=== PATIENT | female | born 1950 | race Caucasian/White ===

== ENCOUNTER 2016-08-08 09:25 | Inpatient (IN) | payer MEDICARE, MEDICAID ==
[~2016-08-08] VITALS: Ht 161.3 cm; Wt 60.3 kg
[2016-08-26] MEDS ORDERED: OMEP40CA2 PO (15:16)
[2016-08-26] MEDS ORDERED: ALBUAER3 INH (15:16)
[2016-08-26] MEDS ORDERED: [UNRECOGNIZED DRUG - OTHER] LEFT EYE (15:16)
[2016-08-26] MEDS ORDERED: ALBU0.08 NEB (15:16)
[2016-08-26] MEDS ORDERED: RISE1TAB PO (15:16)
[2016-08-26] MEDS ORDERED: FLUT1INH INH (15:16)
[2016-08-26] MEDS ORDERED: MULTTAB25 PO (15:16)
[2016-08-26] MEDS ORDERED: CETI10 PO (15:16)
[2016-08-26] MEDS ORDERED: NAPR500T PO (15:16)
[2016-08-26] MEDS ORDERED: CALC600T10 PO (15:16)
[2016-08-26] MEDS ORDERED: MECL-62 PO (15:16)
[2016-08-26] MEDS ORDERED: BUSP15TA PO (15:16)
[2016-08-26] MEDS ORDERED: VITA20003 PO (15:16)
[2016-08-26] MEDS ORDERED: SPIRCAP INH (15:16)
[2016-08-26] MEDS ORDERED: [UNRECOGNIZED DRUG - CODE] TOP (15:16)
[2016-08-28] MEDS ORDERED: INSULIN HUMAN REGULAR 1,000 UNITS/10 ML VIAL SQ PRN (07:15)
[2016-08-28] MEDS ORDERED: ALVIMOPAN 12 MG CAPSULE - On Call PO SCH (07:15)
[2016-08-28] MEDS ORDERED: ACETAMINOPHEN 1000 MG/100 ML VIAL IV SCH (07:15)
[2016-08-28] MEDS ORDERED: ceFAZolin 1,000 MG/NS 100 ML IV SCH ×2 (07:15)
[2016-08-28] MEDS ORDERED: METRONIDAZOLE 500 MG/100 ML ISONTONIC SOLN IV SCH (07:15)
[2016-08-28] MEDS ORDERED: METOPROLOL TARTRATE 25 MG TAB PO PRN (07:15)
[2016-08-28] MEDS ORDERED: SODIUM CHLORID 0.9% 500 ML IV SCH (07:15)
[2016-08-28] MEDS ORDERED: LACTATED RINGER'S 1000 ML IV SCH (07:15)
[2016-08-28] MEDS ORDERED: BUPIVACAINE LIPOSOME PF 1.3% 20 ML VIAL ONE (07:25)
[2016-08-28] MEDS ORDERED: KETO0.5S2 LEFT EYE (07:46)
[2016-08-28] MEDS ORDERED: PRED1SUS LEFT EYE (07:46)
[2016-08-28 07:48] VITALS: BP 123/66; PULSE 88; RESP 18; TEMP 97.8; O2SAT 95
[2016-08-28 07:52] LABS: AUTOMATED NEUTROPHIL # 4.2 TH/MM3 (1.8-7.7); BASOPHIL % 0.6 % (0.0-2.0); EOSINOPHIL # 0.1 TH/MM3 (0-0.4); EOSINOPHIL % 1.6 % (0.0-4.0); HEMATOCRIT 38.8 % (35.0-46.0); HEMO FLAGS DIFF FINAL; LYMPH % 18.7 % (9.0-44.0); LYMPHOCYTE # 1.1 TH/MM3 (1.0-4.8); MEAN CELL VOLUME 86.2 FL (80.0-100.0); MEAN CORPUSCULAR HEMOGLOBIN 29.4 PG (27.0-34.0); MEAN CORPUSCULAR HGB CONC 34.2 % (32.0-36.0); MONO % 7.9 % (0.0-8.0); NEUT % 71.2 % (16.0-70.0); PLATELET COUNT 198 TH/MM3 (150-450); RED CELL DISTRIBUTION WIDTH 13.8 % (11.6-17.2); WHITE BLOOD COUNT 5.9 TH/MM3 (4.0-11.0)
[2016-08-28 08:18] LABS: BICARBONATE 27.1 MEQ/L (21.0-32.0); POTASSIUM 4.1 MEQ/L (3.5-5.1)
[2016-08-28] MEDS ORDERED: MIDAZOLAM HCL 2 MG/2 ML VIAL ONE (08:32)
[2016-08-28] MEDS ORDERED: FAMOTIDINE 20 MG/2 ML VIAL ONE (08:33)
[2016-08-28] MEDS ORDERED: BUPIVACAINE/EPINEPHRINE 0.25% 50 ML VIAL INFIL ONE (10:34)
[2016-08-28] MEDS ORDERED: NEOSTIGMINE 3 MG/3 ML SYR IV ONE (12:00)
[2016-08-28] MEDS ORDERED: PHENYLEPH/NS 1000 MCG/10 ML SYR IV ONE (12:00)
[2016-08-28] MEDS ORDERED: ONDANSETRON HCL 4 MG/2 ML VIAL IV PUSH ONE (12:00)
[2016-08-28] MEDS ORDERED: LACTATED RINGER'S 1000 ML INJ 1,000 ML IV ONE (12:00)
[2016-08-28] MEDS ORDERED: PROPOFOL 200 MG/20 ML AMP IV ONE (12:00)
--- NOTE | 2016-08-28 12:37 | HHI.PR ---
cc: Petros Mason MD Immediate Post Op Note Procedure Date: Aug 28, 2016 Pre Op Diagnosis: Villous adenoma of the cecum Incarcerated umbilical hernia Post Op Diagnosis: Same Surgeon: Petros Mason Hydrostatic Tester(s): TAIWO Romo Procedure: Laparoscopic assisted ileocecal resection Reduction and primary repair umbilical hernia Complications: None Specimen(s) removed: Distal ileum and cecum to pathology Estimated blood loss: 50 ml Anesthesia: General Drains: None IVF (1500 ml) Patient to: PACU Patient Condition: Good Date/Time of Procedure: SEE SURGICAL CARE RECORD Petros Mason MD Aug 28, 2016 12:37
[2016-08-28] MEDS ORDERED: Post-op Orders (for Pharmacy) MISC XX ONE (12:45)
[2016-08-28] MEDS ORDERED: KETOROLAC TROMETHAMINE 30 MG/ML (IVP) VIAL IVP PRN (12:45)
[2016-08-28] MEDS ORDERED: NALOXONE HCL 0.4 MG/ML AMP IV PRN (12:45)
[2016-08-28] MEDS ORDERED: MORPHINE SULFATE 4 MG/ML INJ IV PUSH PRN (12:45)
[2016-08-28] MEDS ORDERED: ONDANSETRON HCL 4 MG/2 ML VIAL IV PRN (12:45)
[2016-08-28] MEDS ORDERED: SODIUM CHLORIDE 0.9% FLUSH 5 ML FLUSH IVF PRN (12:45)
[2016-08-28] MEDS ORDERED: D5-1/2 NS + KCL 20 MEQ INJ 1,000 ML ONE (12:49)
[2016-08-28] MEDS ORDERED: *morphine SULFATE 8 MG/ML PERIprocedure ONLY ONE ×2 (12:54→13:29)
[2016-08-28] MEDS: D5-NS + KCL 20 MEQ INJ 1,000 ML IV SCH ×2 (12:55→23:41)
[2016-08-28] MEDS ORDERED: DO NOT ADM ANY ANTICOAGULANT DRUGS XX PRN (13:15)
[2016-08-28] MEDS ORDERED: *RESP: ALBUTEROL 2.5 MG/3 ML NEB (PRN) PERIprocedural Use ONLY NEB ONE (13:40)
[2016-08-28] MEDS ORDERED: fentaNYL CITRATE 250 MCG/5 ML AMP ONE (13:41)
[2016-08-28] MEDS ORDERED: PCA - TOTAL MG MORPHINE DELIVERED PER SHIFT SCH (14:00)
--- NOTE | 2016-08-28 19:43 | EKG ---
Date Performed: 08/28/2016 Time Performed: 07:24:32 PTAGE: 66 years EKG: Sinus rhythm INFERIOR MYOCARDIAL INFARCTION , PROBABLY OLD ABNORMAL ECG PREVIOUS TRACING : 12/09/2013 11.27 Compared to prior tracing no significant change DOCTOR: Ewa Dockery Interpretating Date/Time 08/28/2016 19:42:08
[2016-08-28 20:00] VITALS: BP 115/63; PULSE 92; RESP 18; TEMP 97.7; O2SAT 96
[2016-08-28] MEDS: SODIUM CHLORIDE 0.9% FLUSH 5 ML FLUSH IVF SCH (21:00)
[2016-08-28] MEDS ORDERED: MECLIZINE HCL 25 MG TAB PO PRN (21:00)
[2016-08-28] MEDS ORDERED: RISEDRONATE 35 MG PO SCH (21:00)
--- NOTE | 2016-08-28 21:24 | RADRPT ---
EXAM DATE/TIME: 08/28/2016 21:04 [place] COMPARISON: No previous studies available for comparison. INDICATIONS : Short of breath. MEDICAL HISTORY : Unobtainable. SURGICAL HISTORY : Unobtainable. ENCOUNTER: Initial ACUITY: 1 day PAIN SCORE: 0/10 LOCATION: Bilateral chest FINDINGS: A single view of the chest demonstrates the lungs to be symmetrically aerated without evidence of mas s, infiltrate or effusion. The cardiomediastinal contours are unremarkable. Osseous structures are intact. CONCLUSION: No acute disease. Yobani Childers MD on August 28, 2016 at 21:23 Board Certified Radiologist. This report was verified electronically.
[2016-08-28] MEDS: RESP: ALBUTEROL 2.5 MG/3 ML NEB (PRN) NEB (22:30)
[2016-08-28] MEDS: busPIRone HCL 5 MG TAB PO SCH (23:39)
[2016-08-28] MEDS: ACETAMINOPHEN/HYDROcodone 325 MG/5 MG TAB PO PRN (23:46)
[2016-08-28] MEDS: KETOROLAC TROMETHAMINE 0.5% OPHT SOLN 5 ML BTL LEFT EYE SCH (23:50)
[2016-08-28] MEDS: prednisoLONE ACETATE 1% OPHT SUSP 5 ML BTL LEFT EYE SCH (23:51)
[2016-08-29] VITALS (8 sets, daily range): BP systolic 107–134; BP diastolic 55–60; PULSE 88–104; RESP 17–20; TEMP 97.7–99.3; O2SAT 93–98
[2016-08-29 05:39] LABS: AUTOMATED NEUTROPHIL # 14.3 TH/MM3 (1.8-7.7); BASOPHIL % 0.1 % (0.0-2.0); HEMATOCRIT 35.1 % (35.0-46.0); HEMO FLAGS DIFF FINAL; LYMPH % 5.5 % (9.0-44.0); LYMPHOCYTE # 0.9 TH/MM3 (1.0-4.8); MEAN CELL VOLUME 87.1 FL (80.0-100.0); MEAN CORPUSCULAR HEMOGLOBIN 29.7 PG (27.0-34.0); MEAN CORPUSCULAR HGB CONC 34.1 % (32.0-36.0); MONO % 8.5 % (0.0-8.0); NEUT % 85.9 % (16.0-70.0); PLATELET COUNT 190 TH/MM3 (150-450); RED BLOOD COUNT 4.03 MIL/MM3 (4.00-5.30); RED CELL DISTRIBUTION WIDTH 14.1 % (11.6-17.2); WHITE BLOOD COUNT 16.6 TH/MM3 (4.0-11.0)
[2016-08-29 05:53] LABS: BICARBONATE 27.8 MEQ/L (21.0-32.0)
[2016-08-29] MEDS: D5-NS + KCL 20 MEQ INJ 1,000 ML IV SCH ×3 (06:35→20:37)
[2016-08-29] MEDS: ACETAMINOPHEN/HYDROcodone 325 MG/5 MG TAB PO PRN ×4 (06:35→23:03)
[2016-08-29] MEDS: ALVIMOPAN 12 MG CAPSULE - Post-op dosing PO SCH ×2 (08:03→22:53)
[2016-08-29] MEDS: MULTIVITAMIN HEMATINIC THERAPEUTIC TAB PO SCH (08:03)
[2016-08-29] MEDS: CALCIUM/VITAMIN D 250 MG/125 U TAB PO SCH (08:03)
[2016-08-29] MEDS: CHOLECALCIFEROL (VIT D3) 1000 UNIT TAB PO SCH (08:03)
[2016-08-29] MEDS: CETIRIZINE HCL 10 MG TAB PO SCH (08:03)
[2016-08-29] MEDS: busPIRone HCL 5 MG TAB PO SCH ×2 (08:03→22:52)
[2016-08-29] MEDS: TIOTROPIUM BROMIDE 18 MCG INH INH SCH (08:04)
[2016-08-29] MEDS: KETOROLAC TROMETHAMINE 0.5% OPHT SOLN 5 ML BTL LEFT EYE SCH ×4 (08:04→22:54)
[2016-08-29] MEDS: FLUTICASONE 100 MCG/VILANTEROL 25 MCG INHALER INH SCH (08:04)
[2016-08-29] MEDS: prednisoLONE ACETATE 1% OPHT SUSP 5 ML BTL LEFT EYE SCH ×4 (08:04→22:54)
[2016-08-29] MEDS: SODIUM CHLORIDE 0.9% FLUSH 5 ML FLUSH IVF SCH ×2 (08:05→21:00)
--- NOTE | 2016-08-29 11:07 | HHI.PR ---
Subjective Subjective Notes Resting in bed Pain controlled Has been OOB this morning with [place] PEREZ Objective Vitals/I&O Vital Signs Date Time Temp Pulse Resp B/P Pulse Ox O2 Delivery O2 Flow Rate FiO2 08/29/16 08:00 97.8 88 17 115/57 96 08/28/16 19:30 Nasal Cannula 2 Labs Laboratory Tests Test 08/29/16 05:02 White Blood Count 16.6 Red Blood Count 4.03 Hemoglobin 12.0 Hematocrit 35.1 Mean Corpuscular Volume 87.1 Mean Corpuscular Hemoglobin 29.7 Mean Corpuscular Hemoglobin 34.1 Concent Red Cell Distribution Width 14.1 Platelet Count 190 Mean Platelet Volume 9.3 Neutrophils (%) (Auto) 85.9 Lymphocytes (%) (Auto) 5.5 Monocytes (%) (Auto) 8.5 Eosinophils (%) (Auto) 0.0 Basophils (%) (Auto) 0.1 Neutrophils # (Auto) 14.3 Lymphocytes # (Auto) 0.9 Monocytes # (Auto) 1.4 Eosinophils # (Auto) 0.0 Basophils # (Auto) 0.0 CBC Comment DIFF FINAL Differential Comment Sodium Level 140 Potassium Level 4.0 Chloride Level 105 Carbon Dioxide Level 27.8 Anion Gap 7 Blood Urea Nitrogen 10 Creatinine 0.70 Estimat Glomerular Filtration 84 Rate Random Glucose 129 Calcium Level 8.2 Cardiovascular: Regular Lungs: Clear Abdomen: Other (RLQ incision c/d/i; lap sites c/d/i; UH dressing with minimal blody drainage ) Extremities: No edema A/P Assessment and Plan 66 year old female POD1 Laparoscopic assisted ileocecal resection and reduction and primary repair umbilical hernia -Continue fulls -OOB and mobilized; up to chair TID and walk in hallway -Pain control -Encouraged IS use -Off oxygen; continue Albuterol Attending Note - Dr. Mason Abdominal wounds clean and dry; minimal drainage on umbilical dressing. No flatus or BM yet. As above; await path report. The exam, history, and the medical decision-making described in the above note were completed with the assistance of the mid-level provider. I reviewed and agree with the findings presented. I attest that I had a [id number] encounter with the patient on the same day, and personally performed and documented my assessment and findings in the medical record. Gerda Dubon Aug 29, 2016 11:07 Petros Mason MD Aug 29, 2016 14:25
[2016-08-30] VITALS: BP 122/63; PULSE 86; RESP 20; TEMP 97.5; O2SAT 97
[2016-08-30 04:32] LABS: AUTOMATED NEUTROPHIL # 7.8 TH/MM3 (1.8-7.7); BASOPHIL # 0.1 TH/MM3 (0-0.2); BASOPHIL % 0.6 % (0.0-2.0); EOSINOPHIL # 0.1 TH/MM3 (0-0.4); HEMATOCRIT 35.5 % (35.0-46.0); HEMO FLAGS DIFF FINAL; LYMPH % 12.8 % (9.0-44.0); LYMPHOCYTE # 1.3 TH/MM3 (1.0-4.8); MEAN CELL VOLUME 87.5 FL (80.0-100.0); MEAN CORPUSCULAR HGB CONC 33.2 % (32.0-36.0); MONO % 10.6 % (0.0-8.0); PLATELET COUNT 174 TH/MM3 (150-450); RED BLOOD COUNT 4.06 MIL/MM3 (4.00-5.30); RED CELL DISTRIBUTION WIDTH 14.1 % (11.6-17.2); WHITE BLOOD COUNT 10.3 TH/MM3 (4.0-11.0)
[2016-08-30] MEDS: ACETAMINOPHEN/HYDROcodone 325 MG/5 MG TAB PO PRN ×5 (04:40→21:43)
[2016-08-30] MEDS: D5-NS + KCL 20 MEQ INJ 1,000 ML IV SCH ×3 (06:49→16:24)
[2016-08-30 08:17] VITALS: BP 141/65; PULSE 90; RESP 18; TEMP 97.2; O2SAT 94
[2016-08-30] MEDS: prednisoLONE ACETATE 1% OPHT SUSP 5 ML BTL LEFT EYE SCH ×4 (08:18→19:56)
[2016-08-30] MEDS: ALBUTEROL SULFATE 90 MCG/ACT HFA 8 GM INHALER INH PRN (08:19)
[2016-08-30] MEDS: KETOROLAC TROMETHAMINE 0.5% OPHT SOLN 5 ML BTL LEFT EYE SCH ×4 (08:19→19:56)
[2016-08-30] MEDS: TIOTROPIUM BROMIDE 18 MCG INH INH SCH (08:20)
[2016-08-30] MEDS: FLUTICASONE 100 MCG/VILANTEROL 25 MCG INHALER INH SCH (08:21)
[2016-08-30] MEDS: CETIRIZINE HCL 10 MG TAB PO SCH ×2 (08:22→08:25)
[2016-08-30] MEDS: busPIRone HCL 5 MG TAB PO SCH ×2 (08:22→19:56)
[2016-08-30] MEDS: CHOLECALCIFEROL (VIT D3) 1000 UNIT TAB PO SCH (08:22)
[2016-08-30] MEDS: CALCIUM/VITAMIN D 250 MG/125 U TAB PO SCH (08:22)
[2016-08-30] MEDS: ALVIMOPAN 12 MG CAPSULE - Post-op dosing PO SCH ×2 (08:22→19:56)
[2016-08-30] MEDS: MULTIVITAMIN HEMATINIC THERAPEUTIC TAB PO SCH (08:22)
[2016-08-30] MEDS: SODIUM CHLORIDE 0.9% FLUSH 5 ML FLUSH IVF SCH ×2 (08:25→19:55)
[2016-08-30 08:29] VITALS: O2SAT 94
[2016-08-30 12:00] VITALS: BP 124/57; PULSE 82; RESP 18; TEMP 97.9; O2SAT 96
[2016-08-30 16:00] VITALS: BP 142/71; PULSE 95; RESP 20; TEMP 97.1; O2SAT 95
--- NOTE | 2016-08-30 16:08 | HHI.PR ---
Subjective Subjective Notes Has been OOB and make bed up today Passing gas Objective Vitals/I&O Vital Signs Date Time Temp Pulse Resp B/P Pulse Ox O2 Delivery O2 Flow Rate FiO2 08/30/16 13:43 18 08/30/16 12:00 97.9 82 124/57 96 08/30/16 08:29 21 08/29/16 21:08 Nasal Cannula 2.00 Labs Laboratory Tests Test 08/30/16 03:59 White Blood Count 10.3 Red Blood Count 4.06 Hemoglobin 11.8 Hematocrit 35.5 Mean Corpuscular Volume 87.5 Mean Corpuscular Hemoglobin 29.0 Mean Corpuscular Hemoglobin 33.2 Concent Red Cell Distribution Width 14.1 Platelet Count 174 Mean Platelet Volume 9.3 Neutrophils (%) (Auto) 75.0 Lymphocytes (%) (Auto) 12.8 Monocytes (%) (Auto) 10.6 Eosinophils (%) (Auto) 1.0 Basophils (%) (Auto) 0.6 Neutrophils # (Auto) 7.8 Lymphocytes # (Auto) 1.3 Monocytes # (Auto) 1.1 Eosinophils # (Auto) 0.1 Basophils # (Auto) 0.1 CBC Comment DIFF FINAL Differential Comment Cardiovascular: Regular Lungs: Clear Abdomen: Other (incision TONY; lap sites c/d/i; UHR dressing with minimal bloody drainage), Post-op tenderness Extremities: No edema A/P Assessment and Plan 66 year old female POD2 Laparoscopic assisted ileocecal resection and reduction and primary repair umbilical hernia -Continue fulls until BM -OOB and mobilized; up to chair TID and walk in hallway -Decrease fluids to 75 cc/hr -Pain control -Encouraged IS use -Off oxygen; continue Albuterol Attending Note - Dr. Mason Abdomen soft; incisions clean and dry; tegaderm intact over umbilicus. The exam, history, and the medical decision-making described in the above note were completed with the assistance of the mid-level provider. I reviewed and agree with the findings presented. I attest that I had a [id number] encounter with the patient on the same day, and personally performed and documented my assessment and findings in the medical record. Gerda Dubon Aug 30, 2016 16:08 Petros Mason MD Sep 02, 2016 21:44
[2016-08-30] MEDS ORDERED: NORC5TAB PO (19:43)
[2016-08-30 20:00] VITALS: BP 138/71; PULSE 90; RESP 20; TEMP 98.3; O2SAT 94
[2016-08-31] VITALS: BP 124/73; PULSE 86; RESP 20; TEMP 98.5; O2SAT 94
[2016-08-31] MEDS: RESP: ALBUTEROL 2.5 MG/3 ML NEB (PRN) NEB (05:16)
[2016-08-31] MEDS: ACETAMINOPHEN/HYDROcodone 325 MG/5 MG TAB PO PRN ×3 (05:39→22:16)
[2016-08-31 08:00] VITALS: BP 142/64; PULSE 83; RESP 20; TEMP 97.5; O2SAT 95
[2016-08-31] MEDS: MULTIVITAMIN HEMATINIC THERAPEUTIC TAB PO SCH (09:00)
[2016-08-31] MEDS: busPIRone HCL 5 MG TAB PO SCH ×2 (09:12→19:31)
[2016-08-31] MEDS: ALVIMOPAN 12 MG CAPSULE - Post-op dosing PO SCH ×2 (09:12→19:31)
[2016-08-31] MEDS: CALCIUM/VITAMIN D 250 MG/125 U TAB PO SCH (09:13)
[2016-08-31] MEDS: CETIRIZINE HCL 10 MG TAB PO SCH (09:13)
[2016-08-31] MEDS: CHOLECALCIFEROL (VIT D3) 1000 UNIT TAB PO SCH (09:13)
[2016-08-31] MEDS: FLUTICASONE 100 MCG/VILANTEROL 25 MCG INHALER INH SCH (09:15)
[2016-08-31] MEDS: SODIUM CHLORIDE 0.9% FLUSH 5 ML FLUSH IVF SCH ×2 (09:15→19:31)
[2016-08-31] MEDS: ALBUTEROL SULFATE 90 MCG/ACT HFA 8 GM INHALER INH PRN (09:16)
[2016-08-31] MEDS: TIOTROPIUM BROMIDE 18 MCG INH INH SCH (09:16)
[2016-08-31] MEDS: KETOROLAC TROMETHAMINE 0.5% OPHT SOLN 5 ML BTL LEFT EYE SCH ×4 (09:16→19:31)
[2016-08-31] MEDS: prednisoLONE ACETATE 1% OPHT SUSP 5 ML BTL LEFT EYE SCH ×4 (09:16→19:31)
--- NOTE | 2016-08-31 10:37 | HHI.PR ---
Subjective Subjective Notes doing well, up washing her hair. Passing flatus, hungry. Objective Vitals/I&O Vital Signs Date Time Temp Pulse Resp B/P Pulse Ox O2 Delivery O2 Flow Rate FiO2 08/31/16 08:00 97.5 83 20 142/64 95 08/30/16 08:29 21 08/29/16 21:08 Nasal Cannula 2.00 Abdomen: Non-distended, Other, Post-op tenderness (soft. Incisions clean and dry. no erythema, no drainage. Umbilical dressing intact, dry.) Extremities: No edema, Perfused A/P Assessment and Plan POD 3 s/p ileocecal resection, repair UH. Doing well. Pt wants regular food, will order. Chacorta Boudreaux MD Aug 31, 2016 10:37
[2016-08-31 12:34] VITALS: BP 128/75; PULSE 104; RESP 20; TEMP 97.7; O2SAT 95
[2016-08-31 16:22] VITALS: BP 149/90; PULSE 91; RESP 20; TEMP 98.7; O2SAT 94
[2016-08-31 20:00] VITALS: BP 125/67; PULSE 118; RESP 18; TEMP 98.6; O2SAT 93
[2016-09-01] VITALS: BP 102/50; PULSE 88; RESP 18; TEMP 97.7; O2SAT 94
[2016-09-01] MEDS: ACETAMINOPHEN/HYDROcodone 325 MG/5 MG TAB PO PRN ×3 (05:34→18:13)
[2016-09-01 08:00] VITALS: BP 129/58; PULSE 92; RESP 16; TEMP 96.4; O2SAT 94
[2016-09-01 08:20] VITALS: O2SAT 93
[2016-09-01] MEDS: MULTIVITAMIN HEMATINIC THERAPEUTIC TAB PO SCH (08:48)
[2016-09-01] MEDS: CETIRIZINE HCL 10 MG TAB PO SCH (08:49)
[2016-09-01] MEDS: CHOLECALCIFEROL (VIT D3) 1000 UNIT TAB PO SCH (08:49)
[2016-09-01] MEDS: ALVIMOPAN 12 MG CAPSULE - Post-op dosing PO SCH ×2 (08:49→20:42)
[2016-09-01] MEDS: CALCIUM/VITAMIN D 250 MG/125 U TAB PO SCH (08:49)
[2016-09-01] MEDS: busPIRone HCL 5 MG TAB PO SCH ×2 (08:49→20:42)
[2016-09-01] MEDS: ALBUTEROL SULFATE 90 MCG/ACT HFA 8 GM INHALER INH PRN (08:52)
[2016-09-01] MEDS: FLUTICASONE 100 MCG/VILANTEROL 25 MCG INHALER INH SCH (08:52)
[2016-09-01] MEDS: KETOROLAC TROMETHAMINE 0.5% OPHT SOLN 5 ML BTL LEFT EYE SCH ×4 (08:52→20:43)
[2016-09-01] MEDS: TIOTROPIUM BROMIDE 18 MCG INH INH SCH (08:52)
[2016-09-01] MEDS: prednisoLONE ACETATE 1% OPHT SUSP 5 ML BTL LEFT EYE SCH ×4 (08:52→20:42)
[2016-09-01] MEDS: SODIUM CHLORIDE 0.9% FLUSH 5 ML FLUSH IVF SCH ×2 (08:52→20:43)
[2016-09-01 12:00] VITALS: BP 129/60; PULSE 101; RESP 16; TEMP 96.9; O2SAT 93
--- NOTE | 2016-09-01 12:38 | HHI.PR ---
Subjective Subjective Notes DAILY PROGRESS NOTE FOR SURGICAL ATTENDING, DR. DANILO DAVIES Objective Vitals/I&O Vital Signs Date Time Temp Pulse Resp B/P Pulse Ox O2 Delivery O2 Flow Rate FiO2 09/01/16 08:20 93 21 09/01/16 08:00 96.4 92 16 129/58 08/29/16 21:08 Nasal Cannula 2.00 Labs Allergies Coded Allergies Type Severity Reaction Last Updated Verified Latex Allergy Severe Rash 08/28/16 Yes Adhesives Allergy Intermediate Itching 08/28/16 Yes Codeine Adverse Reaction Mild NAUSEA 08/28/16 Yes 08/30//////// 06:00 18:00 06:00 18:00 06:00 18:00 Intake Total 2391 ml 1727 ml 1440 ml 740 ml 960 ml Output Total 1200 ml Balance 2391 ml 527 ml 1440 ml 740 ml 960 ml Intake Oral 960 ml 950 ml 1440 ml 740 ml 960 ml IV Total 1431 ml 777 ml 0 ml 0 ml Output Urine Total 1200 ml # Voids 7 8 7 # Bowel Movements 0 1 1 Laboratory Tests Test 08/30/16 03:59 White Blood Count 10.3 TH/MM3 Red Blood Count 4.06 MIL/MM3 Hemoglobin 11.8 GM/DL Hematocrit 35.5 % Mean Corpuscular Volume 87.5 FL Mean Corpuscular Hemoglobin 29.0 PG Mean Corpuscular Hemoglobin 33.2 % Concent Red Cell Distribution Width 14.1 % Platelet Count 174 TH/MM3 Mean Platelet Volume 9.3 FL Neutrophils (%) (Auto) 75.0 % Lymphocytes (%) (Auto) 12.8 % Monocytes (%) (Auto) 10.6 % Eosinophils (%) (Auto) 1.0 % Basophils (%) (Auto) 0.6 % Neutrophils # (Auto) 7.8 TH/MM3 Lymphocytes # (Auto) 1.3 TH/MM3 Monocytes # (Auto) 1.1 TH/MM3 Eosinophils # (Auto) 0.1 TH/MM3 Basophils # (Auto) 0.1 TH/MM3 CBC Comment DIFF FINAL Differential Comment Procedure Category Date Status Time Complete Blood Count LAB 08/30/16 Complete With Diff 06:00 Sling Cradle Arm ORTHO 08/28/16 Complete Diet Regular Basic DIET 08/31/16 Transmitted Lunch ^ IV SIVA 08/31/16 In Process 18:48 Vital Signs Date Time Temp Pulse Resp B/P Pulse Ox O2 Delivery O2 Flow Rate FiO2 09/01/16 08:20 93 21 09/01/16 08:00 96.4 92 16 129/58 94 09/01/16 00:00 97.7 88 18 102/50 94 08/31/16 20:00 98.6 118 18 125/67 93 08/31/16 16:22 98.7 91 20 149/90 94 08/31/16 12:34 97.7 104 20 128/75 95 08/31/16 09:15 21 08/31/16 08:00 97.5 83 20 142/64 95 08/31/16 00:00 98.5 86 20 124/73 94 08/30/16 20:00 98.3 90 20 138/71 94 08/30/16 17:37 18 08/30/16 16:00 97.1 95 20 142/71 95 08/30/16 13:43 18 08/30/16 12:00 97.9 82 18 124/57 96 08/30/16 08:29 94 21 08/30/16 08:17 97.2 90 18 141/65 94 08/30/16 00:00 97.5 86 20 122/63 97 08/29/16 21:08 98 Nasal Cannula 2.00 08/29/16 20:00 98.4 98 20 107/57 93 08/29/16 16:00 98.5 104 20 134/55 96 Radiology Last Impressions Chest X-Ray 08/28/16 0000 Signed Impressions: Service Date/Time: Sunday, August 28, 2016 21:04 - CONCLUSION: No acute disease. Yobani Childers MD Cardiovascular: Regular Abdomen: Post-op tenderness Extremities: SCD's on Narrative Exam Wound 2 right lower quadrant healing well Umbilical wound healing well Wound Wound : Wound Location: Abdomen Appearance: Clean & Dry Dressing: Dry A/P Assessment and Plan PO s/p ileocecal resection, repair UH. Doing well. Tolerating regular food Positive bowel movement Anticipate discharge Friday if continues to progress. Discharge Planning Possible Friday Attending Statement NOTE FOR SURGICAL ATTENDING, DR. DANILO DAVIES I attest that I had a [id number] encounter with the patient on the same day, and personally performed and documented my assessment and findings in the medical record. The following services were provided during this hospital visit: Chart data review, vital sign assessments/reviewing monitor data Review of consultations notes if present. Medication orders/review and/or management Ordering and/or reviewing lab tests Ordering and/or interpreting/reviewing x-rays and/or diagnostic studies Care of the patient and discussion of the patient with the care team Documentation time To help prompt me to consider important information that might be impacting today's encounter and assessment, information from prior notes written by myself or my colleagues may have been "brought forward/copy and pasted" into today's note. Danilo Davies MD Sep 01, 2016 12:38
[2016-09-01 16:00] VITALS: BP 119/66; PULSE 112; RESP 16; TEMP 97.8; O2SAT 93
[2016-09-01] MEDS: RESP: ALBUTEROL 2.5 MG/3 ML NEB (PRN) NEB (16:18)
--- NOTE | 2016-09-01 18:09 | MP ---
cc: PETROS MASON M.D., HARRY M.D. DATE OF SURGERY: 08/28/2016 OPERATIVE PROCEDURE PERFORMED: 1. Laparoscopic assisted the ileocecal resection. 2. Reduction and primary repair of incarcerated umbilical hernia. ANESTHESIA: General endotracheal SURGEON: Petros Mason MD. CLOTH GRADER SUPERVISOR: TAIWO Guadarrama ESTIMATED BLOOD LOSS: 50 mL. FLUIDS: 1500 mL crystalloid. COMPLICATIONS: None. DRAINS: None. SPECIMEN: Ileocecal resection to pathology. The STRAND GALVANIZER was required to be present to assist in all aspects of the procedure. She was needed for exposure, retraction, and assistance in all technical portions of the procedure. She was present for the entire procedure. DESCRIPTION OF THE PROCEDURE IN DETAIL: The patient was taken to the operating room and placed on the operating table in the supine position after undergoing tap block. She underwent general endotracheal anesthesia. The abdomen was sterilely prepped and draped. Time-out was taken confirming the correct patient, site and procedure to be performed. Skin and subcutaneous tissue was infiltrated with local anesthetic and an incision made through the umbilicus. The fatty tissue was reduced into the abdominal cavity after opening the defect slightly. A 12 mm balloon trocar was inserted and the balloon inflated. The abdomen was insufflated. A 5-mm 30-degree lens was then inserted. Two 5-mm trocars were then placed with the first above the umbilicus and slightly to the right of the midline and the second in the infraumbilical midline. Both entered the abdominal cavity under direct vision uneventfully. Both of these were then used to manipulate the colon. The hepatic flexure was taken down with the harmonic scalpel. The patient was noted to have very loose minimal fatty tissue and attachments. The appendix was then grasped and the cecum was mobilized with the harmonic scalpel as well. When this had been accomplished, the ileum was seen to be quite floppy and the patient was felt to be able to have easy resection in the right lower quadrant. At this point, insufflation was discontinued with the appendix grasped with a grasper. The laparoscope was removed. A transverse incision was made in the right lower quadrant. Dissection was carried through the anterior fascia with electrocautery. The muscle was split in fibers and left intact. The posterior fascia was opened sharply with scissors. The peritoneal cavity was entered uneventfully. The cecum was brought up into the wound and at this point a ROSA was used to divide the ileum as well as the ascending colon at the mid ascending colon location. The mesentery in-between was then divided with both the harmonic scalpel as well as between successive clamping and ligation with 2-0 silk sutures. The specimen was passed off the table. The ileum and cecum were then opened after toweling off the area and an ileocecal anastomosis was created with the ROSA 75 stapler. The toe of the staple line was reinforced and the staple line internally was examined and seen to be hemostatic. The ileocecal opening was then closed with a TX-60 type stapler. The staple line was examined and seen to be intact. The anastomosis was seen to be widely patent. The mesenteric defect was closed with [id number] 3-0 silk suture. When this was accomplished and hemostasis was assured, the new ileocolic anastomosis was placed back into the abdominal cavity. The fascia was closed in two layers with #1 PDS suture. The skin was closed with interrupted 3-0 Vicryl suture and 5-0 PDS in a running subcuticular fashion. The two 5 mm trocars were closed with interrupted buried 4-0 Vicryl suture. The umbilicus was closed with #1 Prolene in a vertical simple interrupted fashion. The skin was closed with 4-0 Vicryl in an interrupted buried fashion. A 4x4 and Tegaderm was applied over this and the air aspirated to help minimize seroma formation. The patient was taken back to the recovery room in stable condition after being extubated. Sponge, needle and instrument counts were reported be correct. MD GÉNESIS Gillespie/JUAN CARLOS /5:17 PM /5:57 PM SABA
[2016-09-01 20:00] VITALS: BP 134/58; PULSE 95; RESP 20; TEMP 98.5; O2SAT 93
[2016-09-02] VITALS: BP 122/64; PULSE 97; RESP 18; TEMP 97.8; O2SAT 95
[2016-09-02] MEDS: ACETAMINOPHEN/HYDROcodone 325 MG/5 MG TAB PO PRN ×3 (00:22→10:29)
[2016-09-02 08:00] VITALS: BP 122/63; PULSE 89; RESP 14; TEMP 96.4; O2SAT 93
[2016-09-02] MEDS: SODIUM CHLORIDE 0.9% FLUSH 5 ML FLUSH IVF SCH (09:00)
[2016-09-02] MEDS: CETIRIZINE HCL 10 MG TAB PO SCH (09:00)
[2016-09-02] MEDS: KETOROLAC TROMETHAMINE 0.5% OPHT SOLN 5 ML BTL LEFT EYE SCH (09:01)
[2016-09-02] MEDS: TIOTROPIUM BROMIDE 18 MCG INH INH SCH (09:01)
[2016-09-02] MEDS: ALBUTEROL SULFATE 90 MCG/ACT HFA 8 GM INHALER INH PRN (09:01)
[2016-09-02] MEDS: FLUTICASONE 100 MCG/VILANTEROL 25 MCG INHALER INH SCH (09:01)
[2016-09-02] MEDS: prednisoLONE ACETATE 1% OPHT SUSP 5 ML BTL LEFT EYE SCH (09:01)
[2016-09-02] MEDS: busPIRone HCL 5 MG TAB PO SCH (09:02)
[2016-09-02] MEDS: CHOLECALCIFEROL (VIT D3) 1000 UNIT TAB PO SCH (09:02)
[2016-09-02] MEDS: ALVIMOPAN 12 MG CAPSULE - Post-op dosing PO SCH (09:02)
[2016-09-02] MEDS: MULTIVITAMIN HEMATINIC THERAPEUTIC TAB PO SCH (09:02)
[2016-09-02] MEDS: CALCIUM/VITAMIN D 250 MG/125 U TAB PO SCH (09:03)
--- NOTE | 2016-09-17 11:11 | HHI.DS ---
Discharge Summary Admission Date Aug 28, 2016 at 05:49 Discharge Date: Sep 02, 2016 Admitting Diagnosis Brief History 66 year old female s/p Laparoscopic assisted ileocecal resection and reduction and primary repair umbilical hernia PE at Discharge Alert and awake Cardio: RRR Resp: CTAB Abd: non distended; Wound to right lower quadrant healing well Umbilical wound healing well Hospital Course This is a 66 year old female s/p Laparoscopic assisted ileocecal resection and reduction and primary repair umbilical hernia. The patient's diet was advanced and her pain was controlled using oral pain medications. She will able to ambulate independently. She will follow up with Dr. Mason in the office. Pt Condition on Discharge: Good Discharge Disposition: Discharge Home Discharge Instructions DIET: Follow Instructions for: As Tolerated, No Restrictions Activities you can perform: See Additionl Instruction Other Activity Instructions: Okay to shower; pat incision dry Gerda Dubon Sep 17, 2016 11:11
== END 2016-09-02 10:48 | disposition home or self-care (01) | DRG 330 ==
LOC: HSDI 08-28 05:49 → N07B 08-28 20:00
PROVIDERS: ADMIT Surgery Trauma Surgery; ATTEND Surgery Trauma Surgery
PROC: 0DTH0ZZ Resection of Cecum, Open Approach (ICD-10-PCS; principal; 2016-08-28 10:04)
PROC: 0WQF0ZZ Repair Abdominal Wall, Open Approach (ICD-10-PCS; 2016-08-28 10:04)
DX: D12.0 Benign neoplasm of cecum (principal); K42.0 Umbilical hernia with obstruction, without gangrene; K21.9 Gastro-esophageal reflux disease without esophagitis; Z87.891 Personal history of nicotine dependence
CPT/HCPCS: 71010; 80048; 85025; 88307; 93005; 94150; 94640; 94664; C9290; J0131; J0690; J1885; J2250; J2270; J2370; J2405; J2710; J3010; J3480; J7120; J7613